=== PATIENT | male | born 1955 | race Caucasian/White ===

== ENCOUNTER → 2017-07-24 | Outpatient (CLI) | payer MEDICARE, BC ==
--- NOTE | 2017-07-24 22:52 | CONS ---
CONSULTATION REASON FOR CONSULTATION: Sleep apnea. HISTORY OF PRESENT ILLNESS: 62-year-old male patient was referred to me for evaluation of sleep apnea. The patient was clinically suspected obstructive sleep apnea. 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 St. He has been told that there was a concern that he is dropping his oxygen at night time and for that reason, he was referred to me. He snores. He has chronic fatigue and tiredness and sleepiness. He is currently retired. 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 He snores. He is not sure if quits breathing. He has had a broken nose due to a cow accident where a cow kicked his nose while undergoing milking. Despite all this, he is able to breathe through his nose. He has got allergic rhinitis and is taking Xyzal and he is a nose and mouth breather. He is also hard of hearing. PAST MEDICAL HISTORY: Obesity, CLL/blood leukemia, hypertension, hard of hearing. Allergic rhinitis. SURGICAL HISTORY: None. DRUG ALLERGIES: Are none. MEDICATIONS: Xyzal, Tricor, Ziac, Norvasc and Lasix. SOCIAL HISTORY: Nonsmoker. No alcohol. No history of IV drugs. Lives alone. He has a dog as a pet at home. FAMILY HISTORY: Negative for sleep apnea. REVIEW OF SYSTEMS: 12-point review of system was done. Positive findings are mentioned above in the history of present illness. PHYSICAL EXAMINATION: BP is 107/68, pulse 78, respirations 16, temperature 98.7. Saturation 96% on room air. Weight is 252. Height is 5 feet 5 inches. Neck size 18 inches. General appearance is calm, comfortable. Head is atraumatic, normocephalic. NECK: Supple. Mallampati class 4. Poor dental condition. Multiple missing teeth. Lungs: Clear to auscultation. HEART: Sounds regular rate and rhythm. Normal S1, S2. ABDOMEN: Soft, nontender. No organomegaly. EXTREMITIES: No edema. No cyanosis or clubbing. NEUROLOGIC: Alert and oriented x3. Psychiatrically: No anxiety or depression. IMPRESSION: 1. Obstructive sleep apnea clinically suspected under investigation. 2. Obesity with a BMI of 41. 3. Mallampati class 4. 4. Broken nose, history of. 5. Allergic rhinitis. 6. Hard of hearing. 7. Hypertension. 8. Blood disorder/leukemia probably chronic. PLAN: Proceed with a screening polysomnogram and decide on treatment accordingly. MMODL / IJN: [id number] /
== END | disposition home or self-care (01) ==
LOC: SLEEP 15:17
PROVIDERS: ATTEND Internal Medicine Critical Care Medicine
DX: G47.33 Obstructive sleep apnea (adult) (pediatric) (principal); E66.9 Obesity, unspecified; J30.9 Allergic rhinitis, unspecified; I10 Essential (primary) hypertension; H91.90 Unspecified hearing loss, unspecified ear; Z68.41 Body mass index [BMI] 40.0-44.9, adult; Z79.899 Other long term (current) drug therapy
CPT/HCPCS: 99211

== ENCOUNTER → 2017-11-13 | Outpatient (CLI) | payer MEDICARE, BC ==
--- NOTE | 2017-11-13 16:34 | PN ---
PROGRESS NOTE Thbsr[age]ak[age]nw[age]-old male patient coming in for a CPAP compliancy followup. The patient was diagnosed having severe JUICE with an AHI of 59, worse during REM sleep, and the patient was given CPAP at the pressure of 14 cm of water. The patient reports improvement in sleep quality. He is waking up much more alert and refreshed and his level of alertness and wakefulness has improved. Nevertheless, he is having some difficulties in achieving a good mask seal and is leaking around the nose while wearing a full-face mask. He has tried already the AirFit F20 and the Simplus full-face mask, and he has had the same problems. I checked his compliance data. The patient is utilizing his CPAP every night. His CPAP use for more than 4 hours is 29 out of 30 and his average use is around 7.7 hours per night. His leak factor is 37 L and his AHI while on treatment is down to 9. Weight has been stable. He is trying to lose weight. No other new complaints otherwise for now. REVIEW OF SYSTEMS: Twelve-point review of systems was done. Positive findings are all mentioned above in the history of present illness. PHYSICAL EXAMINATION: BP is 139/73, pulse 84, respirations 16, temperature 98.1. Weight is 262. Saturation is 97% on room air. GENERAL APPEARANCE: Calm, comfortable. No acute distress. Head is atraumatic, normocephalic. NECK: Supple. Short. Crowding of the posterior pharynx. No goiter or neck masses. LUNGS: Clear to auscultation. HEART: Heart sounds are regular rate and rhythm. Normal S1, S2. No S3, S4. No murmurs. ABDOMEN: Soft, nontender. No organomegaly. EXTREMITIES: No edema. No cyanosis or clubbing at this point. NEUROLOGIC: Alert and oriented x3. No focal neurological deficit. Psychiatrically the patient has no anxiety or depression. IMPRESSION: 1. Severe symptomatic obstructive sleep apnea with an AHI of 59, worse during REM. The patient is compliant with CPAP therapy. He is benefitting from the treatment, yet he needs to have some adjustments on his mask, knowing that the seal is not great and the patient is having leaks along with some residual obstructive events as noted on his CPAP unit. 2. Chronic hypersomnia, improving. 3. Obesity with a body mass index of 41. 4. Impaired hearing. 5. Hypertension. PLAN: 1. We trialed different masks on this patient. Ultimately we got the best results with Destini Collins, large size. A prescription will be sent to [facility]. 2. Continue CPAP at the same level of pressure, which is 14 cm of water. 3. Encourage weight loss. 4. Improve sleep hygiene measures. 5. Will continue to follow. The patient will contact me earlier if he continues to have ongoing problems with the mask interface. MMODL / IJN: [id number] /
== END | disposition home or self-care (01) ==
LOC: SLEEP 14:53
PROVIDERS: ATTEND Internal Medicine Critical Care Medicine
DX: G47.33 Obstructive sleep apnea (adult) (pediatric) (principal); E66.9 Obesity, unspecified; H91.90 Unspecified hearing loss, unspecified ear; I10 Essential (primary) hypertension; Z68.41 Body mass index [BMI] 40.0-44.9, adult; Z99.89 Dependence on other enabling machines and devices

== ENCOUNTER → 2019-03-25 | Outpatient (CLI) | payer MEDICARE, BC ==
--- NOTE | 2019-03-25 17:42 | PN ---
PROGRESS NOTE PROGRESS NOTE FROM SLEEP CENTER: Yeec[age][id number][age][id number]-old male patient coming in for an annual check regarding obstructive sleep apnea. I diagnosed this patient with having severe JUICE approximately a year ago and the patient had an AHI of 59. Currently the patient is on a CPAP pressure of 14 cm of water. Over this past one year the patient was diagnosed having diabetes mellitus. His HbA1c was quite elevated above 13. He was started on oral hypoglycemics and lost a significant amount of weight over the past one year. He lost approximately 32 pounds and he is currently down to 230 pounds. He is very compliant with CPAP therapy. He is wearing the CPAP machine every night. The patient using a Simplus full-face mask, medium size. The patient has been averaging about 7.6 hours of CPAP per night. His CPAP use for more than 4 hours is 29 out of 30. Leak is 13 L/minute. AHI is down to 2.1. The patient has been feeling great. He is feeling refreshed and alert during the day. His sleep quality is good, and as he loses weight his blood sugars are under better control. His HbA1c has dropped below 6. REVIEW OF SYSTEMS: Fourteen-point review of systems was done. Positive findings were all mentioned above in the history of present illness. It is positive for interval weight loss. No polyuria. No polydipsia. No hypersomnia. No sleepiness. His current [place] score is down to 0. No history of any heartburn, chest pain, shortness of breath or restlessness in the lower extremities. PHYSICAL EXAMINATION: VITAL SIGNS: BP is 120/58, pulse 80, respirations 16, temperature 98.2, saturation 97% on room air. Height is 5 feet 5 inches, weight 230, BMI 36.4. GENERAL APPEARANCE: Obese, calm comfortable. HEAD: Atraumatic normocephalic. NECK: Supple. There is no JVD. No goiter neck mass. LUNGS: Diminished breath sounds. Otherwise clear. HEART: Heart sounds are regular rate and rhythm. Normal S1, S2. No S3, S4. No murmurs. ABDOMEN: Soft, nontender. No organomegaly. EXTREMITIES: No edema. No cyanosis or clubbing. NEUROLOGIC: Awake and alert. There are no focal neurological deficits. PSYCHIATRIC: Negative for anxiety or depression. IMPRESSION: 1. Severe obstructive sleep apnea; apnea/hypopnea index of 59. Continues to be successfully treated with a CPAP pressure of 14 cm of water. Treatment is successful. 2. Obesity with interval weight loss. Current BMI is down to 36.4. Weight is down to 230. 3. New-onset diabetes mellitus, well controlled with oral hypoglycemics. 4. Hypersomnia, recovered. Winona score is down to 0. PLAN: 1. Encourage weight loss. 2. Continue CPAP therapy at the same level of pressure. 3. Continue using the Simplus medium-sized full-face mask. 4. The patient continues to benefit from treatment. The patient continues to be compliant. Will continue to follow and make further recommendations based on the patient's progress. MMODL / IJN: [id number] /
== END | disposition home or self-care (01) ==
LOC: SLEEP 15:21
PROVIDERS: ATTEND Internal Medicine Critical Care Medicine
DX: G47.33 Obstructive sleep apnea (adult) (pediatric) (principal); E11.9 Type 2 diabetes mellitus without complications; E66.9 Obesity, unspecified; R63.4 Abnormal weight loss; Z99.89 Dependence on other enabling machines and devices

== ENCOUNTER → 2020-07-06 | Outpatient (CLI) | payer MEDICARE, BC ==
--- NOTE | 2020-07-06 17:25 | PN ---
PROGRESS NOTE This patient is 64, coming in for an annual check regarding his JUICE. The patient has severe JUICE with an AHI of 59, currently on CPAP pressure of 14 cm of water. Over the past one year he has gained around 8 pounds. He remains extremely compliant with CPAP therapy. His CLL remains inactive and stable, and he is not receiving any treatment. His [place] score is down to 2. Based on the CPAP compliancy data, the patient is utilizing his machine 7.5 hours per night. CPAP use for more than 4 hours is 100% with a leak of 13 L/minute. He is using a medium-sized Simplus full-face mask and he needs new equipment. He goes to bed around 10 p.m., wakes up at 6 a.m. in the morning. He is not taking any naps during the day. REVIEW OF SYSTEMS: Fourteen-point review of systems was done. Positive findings are all mentioned above in the history of present illness. PHYSICAL EXAMINATION: BP is 145/82, pulse 64, respiration 16, temperature 98.8, saturation 97% on room air. Height is 5 feet 6 inches. Weight is 238, BMI 38.4. GENERAL APPEARANCE: Calm, comfortable. HEAD: Atraumatic, normocephalic. NECK: Supple. No JVD. No goiter or neck masses. LUNGS: Clear to auscultation. HEART: Heart sounds are regular rate and rhythm. Normal S1, S2. No S3, S4. No murmurs. ABDOMEN: Soft, nontender. No organomegaly. EXTREMITIES: No edema. No cyanosis or clubbing. NEUROLOGIC: Awake and alert. There is no focal neurological deficit. PSYCHIATRIC: Negative for anxiety or depression. IMPRESSION: 1. Severe obstructive sleep apnea, AHI of 59, currently on CPAP pressure of 14. Treatment is successful for now. Compliancy data has been checked and numbers look good. 2. Obesity. 3. Diabetes mellitus. 4. CLL. 5. Hypersomnia, recovered. PLAN: 1. Keep the same CPAP machine. 2. Refill the masks, which include a Simplus full-face mask, medium size. 3. ClimateLine heated tubing. 4. Filters and appropriate head gear. 5. See me back in followup in a year's time. Condition is stable. No need for any further adjustments. MMODL / IJN: [id number] /
== END | disposition home or self-care (01) ==
LOC: SLEEP 16:05
PROVIDERS: ATTEND Internal Medicine Critical Care Medicine
DX: G47.33 Obstructive sleep apnea (adult) (pediatric) (principal); E11.9 Type 2 diabetes mellitus without complications; E66.9 Obesity, unspecified; C91.10 Chronic lymphocytic leukemia of B-cell type not having achieved remission; Z99.89 Dependence on other enabling machines and devices

== ENCOUNTER → 2021-09-20 | Outpatient (CLI) | payer MEDICARE, BC ==
--- NOTE | 2021-09-20 15:20 | P.PN ---
Subjective Progress Note Date: 09/20/21 This is a 66-year-old male patient with known history of obstructive sleep apnea was coming in for an annual check. The patient is known to have severe disease with an AHI of 59. The patient also has diabetes mellitus, hypertension and chronic history of CLL. He is currently on a CPAP pressure of 14 cm of water. He is doing well. He was having some postnasal drainage and he was given some nasal sprays by his primary care physician. He is currently uses utilizing his CPAP at a pressure of 14 cm and the humidity level is at 4 and the patient utilizing a simplest medium-sized fullface mask. Based on a 30 day compliance evaluation, the patient has been averaging around 7.2 hours of CPAP use per night and his CPAP use this for more than 4 hours is at 100%. The patient's AHI is down to 3.5 and his leak is in order of 19 L/m. No smoking. No drinking. He has gained weight in the order of 14 pounds since his last evaluation and current weight is up to 251. He is hard of hearing. He is waking up refreshed and alert during the day. No major hypersomnia and sleepiness. His sleep quality is good. Continue to benefit from the CPAP treatment. Objective - Exam BP is 140/65, pulse is 67, respirations 16, temperature is 97.8, weight is 251, sleepiness score with Hammond is at 3 The patient appeared well nourished and normally developed. Vital signs as documented. Head exam is unremarkable. No scleral icterus or corneal arcus not ed. Neck is without jugular venous distension, thyromegaly, or carotid bruits. Carotid upstrokes are brisk bilaterally. Lungs are clear to auscultation and percussion. Cardiac exam reveals the PMI to be normally sized and situated. Rhythm is regular. First and second heart sounds normal. No murmurs, rubs or gallops. Abdominal exam reveals normal bowel sounds, no masses, no organomegaly and no aortic enlargement. Extremities are nonedematous and both femoral and pedal pulses are normal.Examination of the skin revealed no evidence of significant rashes, suspicious appearing nevi or other concerning lesions.Neurologically, the patient is awake and alert and the patient does not have any focal neurological deficit. Cranial nerves are essentially intact. Assessment and Plan Plan: 1 severe obstructive sleep apnea with an AHI 59. The patient continues to receive CPAP therapy at a pressure of 14 cm of water. She will remain successful. 2 hypersomnia improved 3 obesity with interval 13 pounds weight gain 4 diabetes mellitus 5hypertension 6 chronic leukocytic leukemia Plan Encourage weight loss. Optimize sleep hygiene measures. Continue using the CPAP the same level of pressure. I'm going to refill all of his supplies. No adjustments were done with a CPAP machine. He remains successful. The patient continues to benefit. I will see him back in one year's time in follow-up.
== END ==
LOC: SLEEP 13:52
PROVIDERS: ATTEND Internal Medicine Critical Care Medicine
DX: G47.33 Obstructive sleep apnea (adult) (pediatric) (principal); E66.9 Obesity, unspecified; E11.9 Type 2 diabetes mellitus without complications; C94.80 Other specified leukemias not having achieved remission; I10 Essential (primary) hypertension; Z99.89 Dependence on other enabling machines and devices

== ENCOUNTER → 2022-12-05 | Outpatient (CLI) | payer MEDICARE, BC ==
--- NOTE | 2022-12-05 16:18 | P.PN ---
Progress Note - Text Progress Note Date: 12/05/22 This is a very pleasant 67-year-old male patient was coming in for an annual checkup regarding his obstructive sleep apnea. The patient was last seen in our office approximately year ago. The patient is doing well. The patient no specific complaints. The patient continues to be very compliant to his CPAP therapy the patient continues to lose has CPAP machine at a pressure of 14 cm of water. He has a case of severe JUICE with an AHI 59. Based on a 30 day compliancy data collection, the patient has been utilizing his machine 100% of the time and is achieving more than 4 hours of usage more than 95% of the time. He is been averaging around 7.4 hours of CPAP use per night and the leak factor is in order of 20 L/m and the patient is AHI down to 3.7. The patient is using a Simplus medium-size fullface mask. His weight is up by around 6 pounds since his last evaluation. He has no specific complaints for now. No angina or palpitations. No heartburn. No major hypersomnia or sleepiness during the day. His current [place] score while in treatment is. No other significant events overnight. No other cardiovascular complications since his last evaluation. He remains on a CPAP pressure of 14 cm of water. He is going to bed at around 10 PM and waking up 6 AM in the morning. He is averaging at least 7-8 hours of sleep per night. BP is 146/74 with a pulse of 77 and a respiration of 16 and the temperature is 97.7 degrees and the saturations 96% on room air oxygen. [place] score is 2. Body mass index is 41. Weight is 257. The patient appeared well nourished and normally developed. Vital signs as documented. Head exam is unremarkable. No scleral icterus or corneal arcus noted. Neck is without jugular venous distension, thyromegaly, or carotid bruits. Carotid upstrokes are brisk bilaterally. Lungs are clear to auscultation and percussion. Cardiac exam reveals the PMI to be normally sized and situated. Rhythm is regular. First and second heart sounds normal. No murmurs, rubs or gallops. Abdominal exam reveals normal bowel sounds, no masses, no organomegaly and no aortic enlargement. Extremities are nonedematous and both femoral and pedal pulses are normal.Examination of the skin revealed no evidence of significant rashes, suspicious appearing nevi or other concerning lesions.Neurologically, the patient is awake and alert and the patient does not have any focal neurological deficit. Cranial nerves are essentially intact. Assessment and Plan Plan: 1 severe obstructive sleep apnea with an AHI 59. The patient continues to receive CPAP therapy at a pressure of 14 cm of water. The patient is receiving successful CPAP therapy. No need for any further adjustments. Weight is up by around few pounds. Nevertheless, despite his weight gain, the patient is successfully treated. The machine is functional. The patient has no Darnell. issues for now. No major hypersomnia or sleepiness during the day. 2 hypersomnia improved 3 obesity with interval 6 pounds weight gain 4 diabetes mellitus 5 hypertension 6 chronic leukocytic leukemia Plan Encourage weight loss. Optimize sleep hygiene measures. Continue using the CPAP the same level of pressure. I'm going to refill all of his supplies. No adjustments were done with a CPAP machine. He remains successful. The patient continues to benefit. I will see him back in one year's time in follow-up.
== END ==
LOC: 3 N SLEEP 15:18
PROVIDERS: ATTEND Internal Medicine Critical Care Medicine
DX: G47.33 Obstructive sleep apnea (adult) (pediatric) (principal); E66.9 Obesity, unspecified; E11.9 Type 2 diabetes mellitus without complications; I10 Essential (primary) hypertension; Z98.890 Other specified postprocedural states; Z99.89 Dependence on other enabling machines and devices
CPT/HCPCS: 99212

== ENCOUNTER 2023-04-20 08:25 | Emergency (ER) | payer MEDICARE, BC ==
[2023-04-20] MEDS ORDERED: ONDANSETRON 4 MG/2 ML VIAL IVP STA (09:09)
[2023-04-20] MEDS ORDERED: KETOROLAC 15 MG/ML 1 ML VIAL IVP STA (09:09)
[2023-04-20] MEDS ORDERED: SODIUM CHLORIDE 0.9% 1,000 ML IV STA (09:09)
[2023-04-20 09:36] LABS: Basophils # (A) 0.2 k/uL (0-0.2); Basophils % (A) 1 %; Eosinophils # (A) 0.1 k/uL (0-0.7); Eosinophils % (A) 0 %; HCT 49.8 % (39.0-53.0); HGB 16.5 gm/dL (13.0-17.5); Lymphocytes % (A) 81 %; MCH 30.6 pg (25.0-35.0); MCHC 33.2 g/dL (31.0-37.0); MCV 92.3 fL (80.0-100.0); Mean Platelet Volume 9.6; Monocytes # (A) 0.9 k/uL (0-1.0); Monocytes % (A) 2 %; Neutrophils # (A) 5.6 k/uL (1.3-7.7); Neutrophils % (A) 12 %; Platelet Count 114 k/uL (150-450); RBC 5.39 m/uL (4.30-5.90); RDW 14.2 % (11.5-15.5); WBC 46.2 k/uL (3.8-10.6)
[2023-04-20 09:37] LABS: Appearance,Urine Clear (Clear); Bilirubin,Urine Negative (Negative); Blood,Urine Negative (Negative); Color,Urine Light Yellow; Glucose,Urine (UA) Negative (Negative); Ketones,Urine Negative (Negative); Leukocyte Esterase,Urine Negative (Negative); Nitrite,Urine Negative (Negative); PH, Urine 5.5 (5.0-8.0); Protein,Urine Negative (Negative); Specific Gravity,Urine 1.018 (1.001-1.035); Urobilinogen,Urine <2.0 mg/dL (<2.0)
[2023-04-20 09:39] LABS: Lymphocytes # (A) 37.6 k/uL (1.0-4.8)
[2023-04-20 09:48] LABS: ALT 33 U/L (4-49); AST 41 U/L (17-59); African American GFR (CKD) >90 (>60 ml/min/1.73 sqM); Albumin 4.6 g/dL (3.5-5.0); Alkaline Phosphatase 94 U/L (38-126); Anion Gap 13 mmol/L; Blood Urea Nitrogen 23 mg/dL (9-20); Calcium 9.7 mg/dL (8.4-10.2); Carbon Dioxide 23 mmol/L (22-30); Chloride 103 mmol/L (98-107); Glucose 160 mg/dL (74-99); Lipase 82 U/L (23-300); Non-African American GFR(CKD) 90 (>60 ml/min/1.73 sqM); Sodium 139 mmol/L (137-145); Total Bilirubin 0.9 mg/dL (0.2-1.3); Total Protein 7.4 g/dL (6.3-8.2)
--- NOTE | 2023-04-20 10:19 | CT ---
EXAMINATION TYPE: CT abdomen pelvis wo con DATE OF EXAM: 04/20/2023 COMPARISON: None HISTORY: 67-year-old male, Lower abdominal pain, dysuria CT DLP: 1139.4 mGycm. Automated exposure control for dose reduction was used. TECHNIQUE: Contiguous axial scanning of the abdomen and pelvis without IV contrast. Coronal and sagit sanchez reconstructions performed. FINDINGS: Heart upper limits of normal in size without pericardial effusion. Some dependent atelectasis in the lower lungs. Liver enlarged at 19.4 cm with diffuse low-attenuation. There is a 2.4 cm noncalcified gallstone noted. No abnormal gallbladder distention. Adrenal glands and pancreas are within normal limits. Spleen mildly enlarged at 14.1 cm. Bilateral renal cortical cysts measuring up to 4.7 cm on the right and 4.1 cm on the left. Punctate 3 mm nonobstructive right renal calculus. No hydronephrosis on either side. No dilated small bowel, free fluid, or free air. No mesenteric or retroperitoneal lymphadenopathy. Tiny fatty umbilical hernia. Normal appendix.. Mild stool burden. Mildly redundant sigmoid colon. No pericolonic inflammatory orantes ge. Prostate gland enlargement 5.6 cm wide. There is marked distention of the urinary bladder reaching ne ezekiel up to the umbilicus, spanning 17.5 cm. Some prominent lymph nodes in the inguinal regions measur e up to 2.1 cm. DISH within the lower thoracic spine. Moderate to advanced degenerative disc disease and hypertrophic facet arthropathy throughout the visualized lumbar spine. Mild degenerative changes both hips. IMPRESSION: 1. A 2.4 cm gallstone. 2. Hepatomegaly at 19.4 cm with severe hepatic steatosis. Appropriate clinical management advised. 3. Prostatomegaly at 5.6 cm wide. There is marked distention of the urinary bladder nearly up to the umbilicus. Correlate to exclude urinary retention and any need for catheterization. 4. Prominent lymph nodes in the bilateral inguinal regions measuring up to 2.1 cm. These may be reac tive/post inflammatory. Recommended clinical follow-up to exclude any enlarging lymph nodes. 3 month follow-up CT can also reassess. 5. Punctate 3 mm nonobstructive left renal calculus. Benign bilateral renal cysts measuring up to 4. 7 cm. 6. Mild splenomegaly at 14.1 cm. Clinically correlate.
[2023-04-20 10:31] LABS: RBC Morphology Normal
--- NOTE | 2023-04-20 10:44 | ED ---
Abdominal Pain HPI - General Chief Complaint: Abdominal Pain Stated Complaint: lower abd pain Time Seen by Provider: 04/20/23 08:53 Source: patient Mode of arrival: EMS Limitations: no limitations - History of Present Illness Initial Comments: Patient is a 67-year-old male who presents the emergency department for lower abdominal pain. This started yesterday and has been worsening. Patient has had difficulty urinating he can only get out small amounts at a time. He denies burning with urination, blood in the urine, penile discharge. Patient feels nauseous no vomiting. No fever or chills. History of leukemia. - Related Data Allergies Allergy/AdvReac Type Severity Reaction Status Date / Time No Known Allergies Allergy Verified 04/20/23 08:43 Review of Systems ROS Statement: Those systems with pertinent positive or pertinent negative responses have been documented in the HPI. ROS Other: All systems not noted in ROS Statement are negative. Past Medical History Past Medical History: Diabetes Mellitus, Hyperlipidemia, Hypertension Additional Past Medical History / Comment(s): lukemia, diabetic, sinus problems, Past Surgical History: No Surgical Hx Reported Past Psychological History: No Psychological Hx Reported Smoking Status: Never smoker Past Alcohol Use History: Occasional Past Drug Use History: None Reported General Exam Limitations: no limitations General appearance: alert Respiratory exam: Present: normal lung sounds bilaterally. Absent: respiratory distress, wheezes, rales, rhonchi, stridor Cardiovascular Exam: Present: regular rate, normal rhythm, normal heart sounds. Absent: systolic murmur, diastolic murmur, rubs, gallop, clicks GI/Abdominal exam: Present: soft, tenderness (suprapubic), normal bowel sounds. Absent: distended, guarding, rebound, rigid Neurological exam: Present: alert Psychiatric exam: Present: normal affect, normal mood Skin exam: Present: warm, dry, intact, normal color. Absent: rash Course Vital Signs 04/20/23 08:39 Temperature 98.6 F Pulse Rate 94 Respiratory 18 Rate Blood Pressure 137/90 O2 Sat by Pulse 97 Oximetry Medical Decision Making - Medical Decision Making Was pt. sent in by a medical professional or institution (, TATA, OPERATING ROOM AIDE, urgent care, hospital, or residential...) When possible be specific @ -No Did you speak to anyone other than the patient for history (EMS, parent, family, police, friend...)? What history was obtained from this source @ -No Did you review nursing and triage notes (agree or disagree)? Why? @ -I reviewed and agree with nursing and triage notes Were old charts reviewed (outside hosp., previous admission, EMS record, old EKG, old radiological studies, urgent care reports/EKG's, residential records)? Report findings @ -No old charts were reviewed Differential Diagnosis (chest pain, altered mental status, abdominal pain women, abdominal pain men, vaginal bleeding, weakness, fever, dyspnea, syncope, headache, dizziness, GI bleed, back pain, seizure, CVA, palpatations, mental health)? @ -Differential Abdominal Pain Men: Appendicitis, cholecystitis, diverticulosis, ischemic bowel, pancreatitis, hepatitis, UTI, gastroenteritis, AAA, incarcerated hernia, bowel obstruction, constipation, inflammatory bowel, hepatitis, peptic ulcer disease, splenic infarction, perforated viscus, testicular torsion, this is not meant to be an all-inclusive list EKG interpreted by me (3pts min.). @ -As above X-rays interpreted by me (1pt min.). @ -None done CT interpreted by me (1pt min.). @ -None done U/S interpreted by me (1pt. min.). @ -None done What testing was considered but not performed or refused? (CT, X-rays, U/S, labs)? Why? @ -None What meds were considered but not given or refused? Why? @ -None Did you discuss the management of the patient with other professionals (pr ofessionals i.e. , PA, OPERATING ROOM AIDE, lab, RT, psych nurse, dialysis social worker, business control manager, teacher, security officer, correctional counselor/case manager)? Give summary @ -No Was smoking cessation discussed for >3mins.? @ -No Was critical care preformed (if so, how long)? @ -No Were there social determinants of health that impacted care today? How? (Homelessness, low income, unemployed, alcoholism, drug addiction, transport ation, low edu. Level, literacy, decrease access to med. care, residential, rehab)? @ -No Was there de-escalation of care discussed even if they declined (Discuss DNR or withdrawal of care, Hospice)? DNR status @ -No What co-morbidities impacted this encounter? (DM, HTN, Smoking, COPD, CAD, Cancer, CVA, ARF, Chemo, Hep., AIDS, mental health diagnosis, sleep apnea, morbid obesity)? @ -None Was patient admitted / discharged? Hospital course, mention meds given and route, prescriptions, significant lab abnormalities, going to OR and other pertinent info. @ -67-year-old presenting for lower abdominal pain, urinary retention. CT interpreted by myself significant for prostatic megaly has 5.6 cm wide, marked distention of the urinary bladder. No obstructing calculi. Laboratory studies revealed leukocytosis of 46.2, similar previous visit. Patient has history of leukemia. Lactic is elevated at 2.4. Kidney function is normal. Urinalysis is non infectious. Solis catheter placed with significant improvement of symptoms. Patient stable medical condition for discharge. Solis catheter care education provided. Patient to follow up with urology. We did discuss incidental CT findings patient to follow-up with primary care provider Undiagnosed new problem with uncertain prognosis? @ -No Drug Therapy requiring intensive monitoring for toxicity (Heparin, Nitro, Insulin, Cardizem)? @ -No Were any procedures done? @ -No Diagnosis/symptom? @ -[Abdominal pain, urinary retention Acute, or Chronic, or Acute on Chronic? @ -[Acute Uncomplicated (without systemic symptoms) or Complicated (systemic symptoms)? @ Uncomplicated Side effects of treatment? @ -No Exacerbation, Progression, or Severe Exacerbation? @ -No Poses a threat to life or bodily function? How? (Chest pain, USA, ME, pneumonia, PE, COPD, DKA, ARF, appy, cholecystitis, CVA, Diverticulitis, Homicidal, Suicidal, threat to staff... and all critical care pts) @ -No Dr. Jewell is my attending - Lab Data Result diagrams: 04/20/23 09:10 04/20/23 09:10 Lab Results 04/20/23 04/20/23 04/20/23 Range/Units 09:10 09:10 09:10 WBC 46.2 H (3.8-10.6) k/uL RBC 5.39 (4.30-5.90) m/uL Hgb 16.5 (13.0-17.5) gm/dL Hct 49.8 (39.0-53.0) % MCV 92.3 (80.0-100.0) fL MCH 30.6 (25.0-35.0) pg MCHC 33.2 (31.0-37.0) g/dL RDW 14.2 (11.5-15.5) % Plt Count 114 L (150-450) k/uL MPV 9.6 Neutrophils % 12 % Lymphocytes % 81 % Monocytes % 2 % Eosinophils % 0 % Basophils % 1 % Neutrophils # 5.6 (1.3-7.7) k/uL Lymphocytes # 37.6 H (1.0-4.8) k/uL Monocytes # 0.9 (0-1.0) k/uL Eosinophils # 0.1 (0-0.7) k/uL Basophils # 0.2 (0-0.2) k/uL Manual Slide Review Performed RBC Morphology Normal Sodium 139 (137-145) mmol/L Potassium 5.0 (3.5-5.1) mmol/L Chloride 103 (98-107) mmol/L Carbon Dioxide 23 (22-30) mmol/L Anion Gap 13 mmol/L BUN 23 H (9-20) mg/dL Creatinine 0.88 (0.66-1.25) mg/dL Est GFR (CKD-EPI)AfAm >90 (>60 ml/min/1.73 sqM) Est GFR (CKD-EPI)NonAf 90 (>60 ml/min/1.73 sqM) Glucose 160 H (74-99) mg/dL Plasma Lactic Acid Del (0.7-2.0) mmol/L Calcium 9.7 (8.4-10.2) mg/dL Total Bilirubin 0.9 (0.2-1.3) mg/dL AST 41 (17-59) U/L ALT 33 (4-49) U/L Alkaline Phosphatase 94 (38-126) U/L Total Protein 7.4 (6.3-8.2) g/dL Albumin 4.6 (3.5-5.0) g/dL Lipase 82 (23-300) U/L Urine Color Light Yellow Urine Appearance Clear (Clear) Urine pH 5.5 (5.0-8.0) Ur Specific [place] 1.018 (1.001-1.035) Urine Protein Negative (Negative) Urine Glucose (UA) Negative (Negative) Urine Ketones Negative (Negative) Urine Blood Negative (Negative) Urine Nitrite Negative (Negative) Urine Bilirubin Negative (Negative) Urine Urobilinogen <2.0 (<2.0) mg/dL Ur Leukocyte Esterase Negative (Negative) 04/20/23 Range/Units 09:10 WBC (3.8-10.6) k/uL RBC (4.30-5.90) m/uL Hgb (13.0-17.5) gm/dL Hct (39.0-53.0) % MCV (80.0-100.0) fL MCH (25.0-35.0) pg MCHC (31.0-37.0) g/dL RDW (11.5-15.5) % Plt Count (150-450) k/uL MPV Neutrophils % % Lymphocytes % % Monocytes % % Eosinophils % % Basophils % % Neutrophils # (1.3-7.7) k/uL Lymphocytes # (1.0-4.8) k/uL Monocytes # (0-1.0) k/uL Eosinophils # (0-0.7) k/uL Basophils # (0-0.2) k/uL Manual Slide Review RBC Morphology Sodium (137-145) mmol/L Potassium (3.5-5.1) mmol/L Chloride (98-107) mmol/L Carbon Dioxide (22-30) mmol/L Anion Gap mmol/L BUN (9-20) mg/dL Creatinine (0.66-1.25) mg/dL Est GFR (CKD-EPI)AfAm (>60 ml/min/1.73 sqM) Est GFR (CKD-EPI)NonAf (>60 ml/min/1.73 sqM) Glucose (74-99) mg/dL Plasma Lactic Acid Del 2.4 H* (0.7-2.0) mmol/L Calcium (8.4-10.2) mg/dL Total Bilirubin (0.2-1.3) mg/dL AST (17-59) U/L ALT (4-49) U/L Alkaline Phosphatase (38-126) U/L Total Protein (6.3-8.2) g/dL Albumin (3.5-5.0) g/dL Lipase (23-300) U/L Urine Color Urine Appearance (Clear) Urine pH (5.0-8.0) Ur Specific [place] (1.001-1.035) Urine Protein (Negative) Urine Glucose (UA) (Negative) Urine Ketones (Negative) Urine Blood (Negative) Urine Nitrite (Negative) Urine Bilirubin (Negative) Urine Urobilinogen (<2.0) mg/dL Ur Leukocyte Esterase (Negative) Disposition Clinical Impression: Abdominal pain, Urinary retention Disposition: HOME SELF-CARE Condition: Good Instructions (If sedation given, give patient instructions): Urinary Retention in Men (ED), Enlarged Prostate (BPH) (ED), Solis Catheter Placement and Care (ED) Additional Instructions: Follow-up with urology in 1-2 days. Keep Solis catheter in for further evaluation and management. There are lymph nodes in your inguinal region, enlarged liver, and enlarged spleen that needs further evaluation by your [facility] care provider. Return to the emergency department if you experience new, concerning, or worsening symptoms. Is patient prescribed a controlled substance at d/c from ED?: No Referrals: Raphael Conner MD [Primary Care Provider] - 1-2 days Titi Medley MD [STAFF PHYSICIAN] - 1-2 days
[2023-04-20 11:50] VITALS: BP 116/60; PULSE 80; RESP 16; TEMP 98.2
== END 2023-04-20 11:43 | disposition home or self-care (01) ==
LOC: EC 08:25
DX: R10.30 Lower abdominal pain, unspecified (principal); R33.9 Retention of urine, unspecified; R74.02 Elevation of levels of lactic acid dehydrogenase [LDH]; E11.9 Type 2 diabetes mellitus without complications; I10 Essential (primary) hypertension
CPT/HCPCS: 99285; 51702; 96374; 96375; 96361; 51798; 36415; 80053; 83605; 83690; 85025; 81003; 74176; J2405; J1885; 99284

== ENCOUNTER → 2023-12-13 | Outpatient (CLI) | payer MEDICARE, BC ==
[2023-12-13 16:30] VITALS: BP 123/73; PULSE 68; RESP 16; TEMP 98.3
--- NOTE | 2023-12-19 11:15 | P.SLEEP ---
History of Present Illness DATE: 12/13/2023 CONSULTATION/NEW PATIENT EVALUATION HISTORY OF PRESENT ILLNESS/SLEEP-WAKE EVALUATION: 68-year-old gentleman had b een evaluated in the sleep center for obstructive sleep apnea hypopnea syndrome. Patient continued to use his CPAP equipment every night. I checked CPAP unit. CPAP pressure is 14 cm of water. Usage is 100%, average 7.6 hours. Leak is slightly increased to 30 L/min but apnea hypopnea index total normal 1.9. SLEEP SCHEDULE: Usually sleep schedule from 10:30 PM to 6 AM 7 days a week. FALLING ASLEEP: No problems with falling asleep. DURING SLEEP: Patient sleeps well may wake up from sleep once, no history of nocturia at the present time. No history of hypnogogical hallucinations, sleep paralysis, or cataplexy. DURING THE DAY/WAKE STATE: []. [place] sleepiness scale is 3, which is normal. Usually patient does not take naps. PAST MEDICAL HISTORY: CLL, hypertension, hearing problems, gout, prediabetes. PAST SURGICAL HISTORY: None. MEDICATIONS: Please see below. SOCIAL HISTORY: Please see below. FAMILY HISTORY: Cancer, hypertension, hypercholesterolemia. REVIEW OF SYSTEMS: No snoring on CPAP. No fevers. No double vision. No recent chest pain. No shortness of breath. No abdominal pain. No bleeding episodes. No blood in urine. No seizure episodes. PHYSICAL EXAMINATION: GENERAL: A pleasant patient without any distress. VITAL SIGNS: Please see below, weight is 245 pounds, BMI 39.5. HEENT: PERRLA, EOMI. Evaluation of oropharynx showed tongue protrudes midline, low position of soft palate Mallampati 4. NECK: Supple. No JVD. Thyroid is not palpable. 18 inches in circumference. LUNGS: Clear to percussion and to auscultation. Good air exchange. No wheezing o r rhonchi. HEART: S1, S2 regular. No murmurs, gallops or rubs. ABDOMEN: Soft and nontender. Bowel sounds are present. No organomegaly appreciated. EXTREMITIES: No clubbing or cyanosis. DIRECTOR OF MEDICAL REVIEW: Awake, alert, and oriented x3. Cranial nerves 2 to 7 intact. There is no fasciculation or atrophy noted. No focal deficits observed. ASSESSMENT: 1. Obstructive sleep apnea hypopnea syndrome, patient demonstrated great compliance with treatment, benefiting from treatment. Reading from the machine showed 100% compliance with normal apnea hypopnea index 1.9. 2. Obesity, BMI 39.5. 3. History of CLL. 4. Gout. 5 hypertension. 6 History of prediabetes. PLAN: 1. Patient will continue to use CPAP equipment every night for the whole night. 2. Prescription for CPAP supplies including mask, tube, filters. 3. Preferable position during sleep on the side. 4. No driving if patient feels any sleepiness. Patient is aware of civil and criminal liability for unsafe driving. 5. Sleep hygiene with regular sleep time for at least 7.5-8 hours. 6. Watching and losing weight. I 7. Follow-up visit in 6 months. Thank you very much for referring this patient for consultation. Sincerely, Rich Negrete MD, PhD, FAASM. Diplomat of [place] [employer], Sleep Medicine Board by [place] [employer] [place] [employer] Octave Board Racker of [facility] [place] Past Medical History Past Medical History: Diabetes Mellitus, Hyperlipidemia, Hypertension Additional Past Medical History / Comment(s): lukemia, diabetic, sinus problems, Past Surgical History: No Surgical Hx Reported Past Psychological History: No Psychological Hx Reported Smoking Status: Never smoker Past Alcohol Use History: Occasional Past Drug Use History: None Reported Medications and Allergies Home Medications Medication Instructions Recorded Confirmed Type Bisoprolol-Hctz 2.5-6.25 mg [Ziac 2.5 mg PO DAILY 12/13/23 12/13/23 History 2.5-6.25 MG] Colchicine 0.6 mg PO DIRECTED PRN 12/13/23 12/13/23 History Furosemide [Lasix] 20 mg PO DAILY 12/13/23 12/13/23 History Levocetirizine Dihydrochloride 5 mg PO DAILY 12/13/23 12/13/23 History Tamsulosin [Flomax] 0.4 mg PO DAILY 12/13/23 12/13/23 History allopurinoL [Zyloprim] 100 mg PO DAILY 12/13/23 12/13/23 History amLODIPine 10 mg PO DAILY 12/13/23 12/13/23 History lisinopriL [Zestril] 10 mg PO DAILY 12/13/23 12/13/23 History Allergies Allergy/AdvReac Type Severity Reaction Status Date / Time No Known Allergies Allergy Verified 04/20/23 08:43 Physical Exam Vitals: Vital Signs Temp Pulse Resp BP Pulse Ox 12/13/23 16:29 98.3 F 68 16 123/73 95 Intake and Output 12/13/23 12/13/23 12/13/23 06:59 14:59 22:59 Other: Weight 111.13 kg Sleep Note - Sleep Data ESS Total: 3 - Sleep Note Sleep Note: Temperature: 98.3 F Pulse Rate: 68 Respiratory Rate: 16 Blood Pressure: 123/73 SpO2: 95 Height: 5 ft 6 in Weight: 111.13 kg BMI: Neck Circumference:
== END ==
LOC: 3 N SLEEP 15:59
PROVIDERS: ATTEND Internal Medicine
DX: G47.33 Obstructive sleep apnea (adult) (pediatric) (principal); E66.9 Obesity, unspecified; M10.9 Gout, unspecified; I10 Essential (primary) hypertension; Z68.39 Body mass index [BMI] 39.0-39.9, adult; Z86.39 Personal history of other endocrine, nutritional and metabolic disease; Z85.6 Personal history of leukemia; Z99.89 Dependence on other enabling machines and devices; Z79.899 Other long term (current) drug therapy
CPT/HCPCS: 99212

== ENCOUNTER → 2024-12-11 | Outpatient (CLI) | payer MEDICARE, BC ==
[2024-12-11 16:27] VITALS: BP 113/73; PULSE 70; RESP 16; TEMP 98.1
--- NOTE | 2024-12-11 16:39 | P.PROGSL ---
Subjective DATE: 12/11/2024 FOLLOW UP VISIT. Patient with obstructive sleep apnea hypopnea syndrome return to sleep center for follow-up visit. Information from previous visit have been reviewed. Patient is using PAP equipment every night for the whole night, getting PAP supplies in time. The patient does not have significant problems with the mask, PAP unit and humidification. [place] sleepiness scale is 3, which is normal. I checked information from PAP unit. PAP unit pressure [] cm H2O. Usage is 100% for more then 4 hours, average 7.5 hours per night. Leak is 26 l/m, which is in acceptable range. Apnea Hypopnea Index is 1.7, which is normal. MEDICATIONS have been reviewed, please see below. During physical exam: GENERAL: A pleasant patient without any distress. VITAL SIGNS: Please see below, weight is 237.8 lbs. HEENT: PERRLA, EOMI.low position of soft palate, Mallapati 4 . NECK: Supple. No JVD. LUNGS: Clear to percussion and to auscultation. Good air exchange. No wheezing or rhonchi. HEART: S1, S2 regular. ABDOMEN: Soft and nontender.[] EXTREMITIES: No clubbing or cyanosis. TUNA PURSE SEINER: Awake, alert, and oriented x3. No focal deficit. Impressions: 1. Obstructive sleep apnea-hypopnea syndrome. Patient demonstrated great compliance with treatment, benefiting from treatment. 2. Obesity, BMI 39.2. 3. History of CLL. 4. Hypertension. 5. Gout. 6. History of prediabetes. Plan: 1. Continue using PAP equipment every night for the whole night. 2. Sleep hygiene with regular time in bed for at least 7.5-8 hours 3. PAP unit should stay lower then position of the head. 4. Advised patient to remove all remaining water from humidifier canister daily and make it dry after each usage. Refill canister with fresh distilled water before each usage. 5. Watching weight. 6. Precautions related to driving. No driving if feel any sleepiness. 7. I will maintain prescription for PAP supplies including mask, tube, filters. 8. Follow up visit in 8 months or earlier if patient has any problems. Thank you very much for allowing me to participate in the management of your patient. Rich Negrete MD, PhD, FAASM. Diplomat of [place] [employer], Sleep Medicine Board by [place] [employer] Outsole S[employer]er of [facility] [place] Objective - Vital Signs Vital Signs: Vital Signs Temp 98.1 F 12/11/24 16:22 Pulse 70 12/11/24 16:22 Resp 16 12/11/24 16:22 BP 113/73 12/11/24 16:22 Pulse Ox 97 12/11/24 16:22 FiO2 Intake & Output 12/10/24 12/11/24 12/11/24 18:59 06:59 18:59 Weight 106.821 kg Home Medications: Home Medications Medication Instructions Recorded Confirmed Type Bisoprolol-Hctz 2.5-6.25 mg [Ziac 2.5 mg PO DAILY 12/13/23 12/13/23 History 2.5-6.25 MG] Colchicine 0.6 mg PO DIRECTED PRN 12/13/23 12/13/23 History Furosemide [Lasix] 20 mg PO DAILY 12/13/23 12/13/23 History Levocetirizine Dihydrochloride 5 mg PO DAILY 12/13/23 12/13/23 History Tamsulosin [Flomax] 0.4 mg PO DAILY 12/13/23 12/13/23 History allopurinoL [Zyloprim] 100 mg PO DAILY 12/13/23 12/13/23 History amLODIPine 10 mg PO DAILY 12/13/23 12/13/23 History lisinopriL [Zestril] 10 mg PO DAILY 12/13/23 12/13/23 History
== END ==
LOC: 3 N SLEEP 15:45
PROVIDERS: ATTEND Internal Medicine
DX: G47.33 Obstructive sleep apnea (adult) (pediatric) (principal); E66.9 Obesity, unspecified; I10 Essential (primary) hypertension; M10.9 Gout, unspecified; Z85.6 Personal history of leukemia; Z68.39 Body mass index [BMI] 39.0-39.9, adult; Z99.89 Dependence on other enabling machines and devices; Z86.32 Personal history of gestational diabetes
CPT/HCPCS: 99212